=== PATIENT | male | born 1990 | race Caucasian/White ===

== ENCOUNTER 2017-01-05 22:06 | Inpatient (IN) | payer BC, OTHER ==
[~2017-01-05] VITALS: Ht 193 cm; Wt 86.2 kg
--- NOTE | 2017-01-05 22:45 | NUR ---
7870 ADMISSION NOTE: 26 year old, well-nourished, caucasion male admitted ambulatory to room # 307, from [facility], accompanied by T. Gait is steady. Patient responds to nurse's greeting and introduction with very brief eye contact and delayed, flat "hello". Patient is oriented to person, place, day, and his personal situation. Reoriented to date and time. Patient's color is pink and his skin is warm, dry and intact. Lung sounds are clear bilaterally and active bowel sounds are noted X 4 abdominal Quads, per auscultation. Patient moves all his extremities fully WNL. Patient denies any pain or other discomforts, though he states in hesitant manner that " yeah, I feel okay". Patient is 6 feet, 4 inches and he weighs 190 lbs. Patient states that he has no food or drug allergies and he denies any seizure history. Patient states that at home he only takes Seroquel 250 mg p.o. every night, though he states also that he has not taken this medication " in a couple of weeks now". Patient states that he has no PCP and is currently living " between places". Patient is admitted for: 1) Heroin IV, used daily 2 grams, last use was 2 grams on 01/05/17. Patient has been using Heroin at this rate for 6 months. 2)Cocaine IV, used 3 times per week 1 gram, last use was 1 gram, a few months ago. Patient has been using Cocaine at this rate for 3 to 4 years. 3) Methamphetamine IV, used 2 times per week, last use was 1/2 gram on 01/03/17. Patient has been using Methamphetamine at this rate for 3 years. Patient states that his longest period of sobriety was 8 months in 2012. Patient states that the last time he was in treatment was in September 2016 for 21 days in [facility] and before then, he was in a [place] treatment facility for 30 days in 2013. Patient is unable to give exact facility names at this time. Patient states that he has a history of anxiety, depression and repair of right tibia fracture with kenneth insertion which was done in 2009. Patient oriented to his room and nurse call light. Patient is presents very tired, sleepy and he is cooperative with admission process with much prompting and repeating of many questions. Overall mood/affect is flat, very guarded and patient basically speaks only a very few words when he is spoken to. [place] snack and juice taken. Bed is locked and in lowest position, bed rails are up X 2 and call light within patient's easy reach.
[2017-01-06] VITALS: BP 119/57
[2017-01-06] MEDS ORDERED: LOPERAMIDE HCL 2 MG CAPSULE PO PRN ×2
[2017-01-06] MEDS ORDERED: MAGNESIUM HYDROXIDE 30 ML LIQUID UDC PO PRN
[2017-01-06] MEDS ORDERED: ONDANSETRON ODT 4 MG TAB.RAPDIS SL PRN
[2017-01-06] MEDS ORDERED: MAG HYDROX/AL HYDROX/SIMETH 30 ML LIQUID UDC PO PRN
[2017-01-06] MEDS ORDERED: ACETAMINOPHEN 325 MG TABLET PO PRN
[2017-01-06] MEDS ORDERED: BUPRENORPHINE HCL 2 MG TAB.SUBL SL PRN
[2017-01-06] MEDS ORDERED: MIRALAX 17 GM POWD.PACK PO PRN
[2017-01-06] MEDS ORDERED: METHOCARBAMOL 750 MG TABLET PO PRN
[2017-01-06] MEDS ORDERED: IBUPROFEN 400 MG TABLET PO PRN
[2017-01-06] MEDS ORDERED: diphenhydrAMINE 50 MG CAPSULE PO PRN
[2017-01-06] MEDS ORDERED: HYDROXYZINE PAMOATE 25 MG CAPSULE PO PRN
[2017-01-06] MEDS ORDERED: CLONIDINE HCL 0.1 MG TABLET PO PRN
[2017-01-06] MEDS ORDERED: PROMETHAZINE HCL 25 MG/1 ML VIAL IM PRN
[2017-01-06] MEDS ORDERED: DICYCLOMINE HCL 20 MG TABLET PO PRN
[2017-01-06 00:12] LABS: *AMPHETAMINE, URINE NEGATIVE (NEGATIVE); *BARBITURATE, URINE NEGATIVE (NEGATIVE); *CANNABINOID, URINE NEGATIVE (NEGATIVE); *COCCAINE, URINE NEGATIVE (NEGATIVE); *OPIATE, URINE POSITIVE (NEGATIVE); *PHENCYCLIDINE SCREEN,URINE NEGATIVE (NEGATIVE)
[2017-01-06 04:00] VITALS: BP 115/65
--- NOTE | 2017-01-06 06:30 | NUR ---
0630 Patient slept a total of 7 hours and he had 4 voids and no stools. Total intake was 1,425 ml p.o. No Prn medications given this shift. V/SS afebrile, COWS 4. Patient presently resting comfortably with eyes closed and respirations regular, unlabored at 14. Patient is in stable condition at this time.
[2017-01-06 08:00] VITALS: BP 109/61
--- NOTE | 2017-01-06 08:01 | NUR ---
START OF SHIFT NOTE Received report from night nurse, 26 year old male admitted for Heroin/Cocaine/Meth dependence. pt reported PMH of anxiety, depression,right tibia fracture repair, hep-c(+). NKA/regular diet, Full code. Pt currently not on any taper but PRN's available for s/s of withdrawal. Skin intact. pt did not receive any PRN per night nurse. Pt slept for 6 hours, Last COWS-4. Received pt sleeping in his room responsive to verbal and tactile stimuli. No s/s of distress noted. Safety measures in place, call light within reach. Will cont to monitor.
[2017-01-06] MEDS ORDERED: TUBERCULIN,PURIF.PROT.DERIV. 5 TU/0.1 ML TEST ID ONE (09:00)
[2017-01-06] MEDS: MULTIVITAMINS,THERAPEUTIC TABLET PO SCH (09:06)
[2017-01-06 12:00] VITALS: BP 99/55
[2017-01-06 14:28] LABS: BASOPHILS % (AUTO) 0.6 % (0.0-2.0); EOSINOPHILS # (AUTO) 0.2 K/uL (0.0-0.7); EOSINOPHILS % (AUTO) 3.1 % (0.0-7.0); HEMATOCRIT 41.8 % (40.0-50.0); HEMOGLOBIN 14.1 g/dL (14.0-18.0); LYMPHOCYTES # (AUTO) 1.8 K/uL (0.8-4.8); LYMPHOCYTES % (AUTO) 23.5 % (20.5-51.5); MEAN CORPUSCULAR HEMOGLOBIN 29.2 uug (27.0-31.0); MEAN CORPUSCULAR HGB CONC 34 g/dL (32.0-37.0); MEAN CORPUSCULAR VOLUME 86.5 fL (82.0-92.0); MONOCYTES # (AUTO) 0.7 K/uL (0.1-1.30); MONOCYTES % (AUTO) 9.9 % (0.0-11.0); NEUTROPHILS # (AUTO) 4.8 K/uL (1.8-8.9); NEUTROPHILS % (AUTO) 62.9 % (38.5-71.5); PLATELET COUNT (AUTO) 320 K/uL (150-450); RED BLOOD CELL COUNT(AUTO) 4.83 MIL/uL (4.70-6.10); RED CELL DISTRIBUTION WIDTH 13.1 % (11.5-14.5); WHITE BLOOD COUNT (AUTO) 7.5 K/uL (4.0-11.2)
[2017-01-06 14:39] LABS: ETHANOL < 3 MG/DL (0-0)
[2017-01-06 14:43] LABS: ALANINE AMINOTRANSFERASE 21 U/L (16-63); ALBUMIN 3.5 g/dL (3.4-5.0); ALKALINE PHOSPHATASE 71 U/L (50-136); AMYLASE 58 U/L (25-115); ASPARTATE AMINOTRANSFERASE 21 U/L (15-37); BILIRUBIN,TOTAL 0.3 mg/dL (0.2-1.0); CARBON DIOXIDE 32 mmol/L (21-32); CHLORIDE 102 mmol/L (98-107); CREATININE 1.3 mg/dL (0.6-1.3); GFR 67 mL/min (>60); GLUCOSE 68 mg/dL (74-106); LIPASE 103 U/L (73-393); MAGNESIUM 1.8 mg/dL (1.8-2.4); POTASSIUM 4.5 mmol/L (3.5-5.1); SODIUM SERUM 138 mmol/L (136-145); TOTAL PROTEIN, SERUM 7.6 g/dL (6.4-8.2); UREA NITROGEN, BLOOD 13 mg/dL (7-18)
[2017-01-06 14:52] LABS: THYROID STIMULATING HORMONE 0.606 mIU/mL (0.358-3.740)
[2017-01-06 14:54] LABS: HIV-1 p24 ANTIGEN NON REACTIVE (NONREACTIVE); HIV-1/2 ANTIBODY NON REACTIVE (NONREACTIVE)
[2017-01-06 16:00] VITALS: BP 106/65
--- NOTE | 2017-01-06 19:09 | NUR ---
END OF SHIFT NOTE Gave report to night nurse, 26 year old male admitted for Heroin/Cocaine/Meth dependence. Pt reported PMH of anxiety, depression,right tibia fracture repair, hep-c(+). NKA/regular diet, Full code. Pt currently not on any taper but PRN's available for s/s of withdrawal. No PRN's given during shift. Skin intact warm and dry to touch. Vital signs stable. Pt's total intake 1755ml, voided x3, with x1 BM. Last COWS-2. No s/s of distress noted. Safety measures in place, call light within reach.Pt endorsed to night nurse in stable condition.
[2017-01-06 20:00] VITALS: BP 108/70
--- NOTE | 2017-01-06 20:00 | NUR ---
Start of Shift Pt is a 26 year old male admitted on 01/05/2017 for Opiate/Cocaine/Meth dependence, PRNs available. Pt reported using Heroin IV 2g/daily, cocaine 1g 3 times per week and meth 0.5g 2 times per week. NKA, regular diet, fall precautions - no history of seizures and full code. PMH: Anxiety, depression, positive hepatitis C and right tibia fx repair/kenneth insertion 2009. Upon assessment, pt reports fatigue, moderate sweat noted, respirations even and unlabored, denies SOB/chest pain, denies n/v/d, skin warm, moist, intact, bowel sounds active x4, abdomen soft. Safety measures in place, call light within reach, side rails up x2, bed locked and in low position. Will continue to monitor.
[2017-01-07] VITALS: BP 116/64
--- NOTE | 2017-01-07 | NUR ---
Vital Signs BP 116/64, pulse 91, respirations 16, Spo2 96%, temp 97.9 COWS deferred d/t pt sleeping, to asses while pt is awake as ordered. Pt is sleeping, no s/s of distress noted, respirations even and unlabored. Safety measures in place, call light within reach, side rails up x2, bed locked and in low position. Will continue to monitor.
[2017-01-07 04:00] VITALS: BP 113/77
--- NOTE | 2017-01-07 04:00 | NUR ---
Vital Signs BP 113/77, pulse 62, respirations 16, Spo2 99%, temp 98.1 COWS deferred d/t pt sleeping, to asses while pt is awake as ordered. Pt is sleeping, no s/s of distress noted, respirations even and unlabored. Safety measures in place, call light within reach, side rails up x2, bed locked and in low position. Will continue to monitor.
--- NOTE | 2017-01-07 07:00 | NUR ---
End of Shift Pt is a 26 year old male admitted on 01/05/2017 for Opiate/Cocaine/Meth dependence, PRNs available. Pt reported using Heroin IV 2g/daily, cocaine 1g 3 times per week and meth 0.5g 2 times per week. NKA, regular diet, fall precautions - no history of seizures and full code. PMH: Anxiety, depression, positive hepatitis C and right tibia fx repair/kenneth insertion 2009. During shift, pt presented with fatigue, moderate sweat noted - pt remained in room throughout shift, requires encouragement of participate in plan of care. No PRN medications administered during shift, COWS 2. Pt slept for 11 hours, intake of 500 ml PO and voids x1. Safety measures in place, call light within reach, side rails up x2, bed locked and in low position. Endorsed to day shift nurse
--- NOTE | 2017-01-07 07:59 | NUR ---
START OF SHIFT NOTE Received report from night nurse, 26 year old male admitted for Opiate/Cocaine/Meth dependence, NKA, regular diet, Full code. On Fall precautions - no history of seizures and Pt reported PMH of Anxiety, depression, positive hepatitis C and right tibia fx repair/kenneth insertion 2009. Pt reported using Heroin IV 2g/daily, cocaine 1g 3 times per week and meth 0.5g 2 times per week. Currently pt is not on any taper but PRN's available for s/s of withdrawal. Upon assessment, pt is alert awake oriented x4 in stable condition. Breathing normal, respirations even and unlabored, denies SOB/chest pain, denies n/v/d, skin warm, moist, intact, bowel sounds active x4, abdomen soft. Safety measures in place, call light within reach, side rails up x2, bed locked and in low position. Will continue to monitor.
[2017-01-07 08:00] VITALS: BP 126/79
[2017-01-07] MEDS: MULTIVITAMINS,THERAPEUTIC TABLET PO SCH (08:30)
[2017-01-07 12:00] VITALS: BP 109/77
[2017-01-07] MEDS: BUPRENORPHINE HCL 2 MG TAB.SUBL SL SCH ×3 (13:26→20:48)
[2017-01-07] MEDS: GABAPENTIN 300 MG CAPSULE PO SCH ×2 (14:15→20:48)
[2017-01-07 16:00] VITALS: BP 112/68
--- NOTE | 2017-01-07 19:06 | NUR ---
END OF SHIFT NOTE Gave report to night nurse, 26 year old male admitted for Opiate/Cocaine/Meth dependence, NKA, regular diet, Full code. On Fall precautions - no history of seizures and Pt reported PMH of Anxiety, depression, positive hepatitis C and right tibia fx repair/kenneth insertion 2009. Pt reported using Heroin IV 2g/daily, cocaine 1g 3 times per week and meth 0.5g 2 times per week. Pt started on Subutex taper for COWS-13, medication noted effective for controlling symptoms, with low CIWA score-3. No PRN's given during shift. Skin intact warm and dry to touch. Vital signs stable. Pt's total intake 2249 ml, voided x5. No s/s of distress noted. Safety measures in place, call light within reach. Pt endorsed to night nurse in stable condition.
[2017-01-07 20:00] VITALS: BP 106/64
--- NOTE | 2017-01-07 20:00 | NUR ---
Start of Shift Pt is a 26 year old male admitted on 01/05/2017 for Opiate/Cocaine/Meth dependence, start on Subutex taper. Pt reported using Heroin IV 2g/daily, cocaine 1g 3 times per week and meth 0.5g 2 times per week. NKA, regular diet, fall precautions - no history of seizures and full code. PMH: Anxiety, depression, positive hepatitis C and right tibia fx repair/kenneth insertion 2009. Upon assessment, pt reports chills/sweats, joint/muscle aches, respirations even and unlabored, denies SOB/chest pain, denies n/v/d, skin warm, moist, intact, bowel sounds active x4, abdomen soft. Safety measures in place, call light within reach, side rails up x2, bed locked and in low position. Will continue to monitor.
[2017-01-08] VITALS: BP 109/61
--- NOTE | 2017-01-08 | NUR ---
Vital Signs BP 109/61, pulse 64, respirations 16, Spo2 98%, temp 97.9 COWS deferred d/t pt sleeping, to asses while pt is awake as ordered. Pt is sleeping, no s/s of distress noted, respirations even and unlabored. Safety measures in place, call light within reach, side rails up x2, bed locked and in low position. Will continue to monitor.
--- NOTE | 2017-01-08 04:00 | NUR ---
Pt refused to be woken up for 0400 Vital Signs COWS deferred d/t pt sleeping, to asses while pt is awake as ordered. Pt is sleeping, no s/s of distress noted, respirations even and unlabored. Safety measures in place, call light within reach, side rails up x2, bed locked and in low position. Will continue to monitor.
--- NOTE | 2017-01-08 07:00 | NUR ---
End of Shift Pt is a 26 year old male admitted on 01/05/2017 for Opiate/Cocaine/Meth dependence, start on Subutex taper. Pt reported using Heroin IV 2g/daily, cocaine 1g 3 times per week and meth 0.5g 2 times per week. NKA, regular diet, fall precautions - no history of seizures and full code. PMH: Anxiety, depression, positive hepatitis C and right tibia fx repair/kenneth insertion 2009. During shift, pt presented with chills/sweat, joint/muscle aches - scheduled taper medications administered, COWS 3. No PRN medications administered during shift. VS stable, Pt slept for 7 hours, intake of 1900 ml PO and voids x3. VS stable, Safety measures in place, call light within reach, side rails up x2, bed locked and in low position. Endorsed to day shift nurse.
--- NOTE | 2017-01-08 07:30 | NUR ---
Start of shift note; Received report from night nurse. Patient is currently resting with eyes closed, responsive to verbal commands. Respirations even and unlabored. Patient is a 26 y/o male admitted on 01/05/17 for Heroin/Cocaine/Meth dependence. Patient reported medical history of Anxiety, depression, kenneth insertion in 2009. NKA, regular diet and on full code status. Patient was placed on 3 day Subutex taper started on 01/07/17, patient's last COWS is 3. All safety measures secured. Met all needs.
[2017-01-08 08:00] VITALS: BP 105/61
[2017-01-08] MEDS: MULTIVITAMINS,THERAPEUTIC TABLET PO SCH (08:48)
[2017-01-08] MEDS: GABAPENTIN 300 MG CAPSULE PO SCH ×3 (08:48→21:19)
[2017-01-08] MEDS ORDERED: BUPRENORPHINE HCL 2 MG TAB.SUBL SL SCH (09:00)
[2017-01-08 12:00] VITALS: BP 104/61
[2017-01-08] MEDS ORDERED: QUET200T PO (12:19)
[2017-01-08] MEDS: BUPRENORPHINE HCL 2 MG TAB.SUBL SL SCH ×2 (14:00→21:19)
[2017-01-08 14:06] LABS: HCV AB >11.0 s/co ratio (0.0-0.9); HEPATITIS B CORE AB, IgM Negative (Negative); HEPATITIS B SURFACE AG Negative (Negative)
[2017-01-08 16:00] VITALS: BP 106/66
--- NOTE | 2017-01-08 18:09 | NUR ---
End of shift note; Patient is AOX4. Patient is a 26 y/o male admitted on 01/05/17 for Heroin/Cocaine/Meth dependence. Patient reported medical history of Anxiety, depression, kenneth insertion in 2009. NKA, regular diet and on full code status. Patient was placed on 3 day Subutex taper started on 01/07/17 no adverse reactions noted, patient's last COWS is 4. Patient remained compliant with treatment plan. Safety measures secured. Met all needs.
[2017-01-08 20:00] VITALS: BP 112/72
--- NOTE | 2017-01-08 20:00 | NUR ---
Start of Shift Pt is a 26 year old male admitted on 01/05/2017 for Opiate/Cocaine/Meth dependence, start on Subutex taper. Pt reported using Heroin IV 2g/daily, cocaine 1g 3 times per week and meth 0.5g 2 times per week. NKA, regular diet, fall precautions - no history of seizures and full code. PMH: Anxiety, depression, positive hepatitis C and right tibia fx repair/kenneth insertion 2009. Upon assessment, pt reports joint/muscle aches, respirations even and unlabored, denies SOB/chest pain, denies n/v/d, skin warm, moist, intact, bowel sounds active x4, abdomen soft. Safety measures in place, call light within reach, side rails up x2, bed locked and in low position. Will continue to monitor.
--- NOTE | 2017-01-09 | NUR ---
Pt refused to be woken up for 0000 Vital Signs COWS deferred d/t pt sleeping, to asses while pt is awake as ordered. Pt is sleeping, no s/s of distress noted, respirations even and unlabored. Safety measures in place, call light within reach, side rails up x2, bed locked and in low position. Will continue to monitor.
--- NOTE | 2017-01-09 02:18 | NUR ---
PRN Administration Pt requested aid to help him sleep, stated "I can't sleep without anything" Benadryl 50mg PRN administered. Safety measures in place, call light within reach, side rails up x2, bed locked and in low position. Will continue to monitor.
--- NOTE | 2017-01-09 03:18 | NUR ---
PRN Reassessment Upon reassessment, pt is in bed, eyes closed, no s/s of distress noted, respirations even and unlabored. Safety measures in place, call light within reach, side rails up x2, bed locked and in low position. Will continue to monitor.
[2017-01-09 04:00] VITALS: BP 110/68
--- NOTE | 2017-01-09 04:00 | NUR ---
Vital Signs BP 110/68, pulse 68, respirations 17, Spo2 98%, temp 97.9 COWS deferred d/t pt sleeping, to asses while pt is awake as ordered. Pt is sleeping, no s/s of distress noted, respirations even and unlabored. Safety measures in place, call light within reach, side rails up x2, bed locked and in low position. Will continue to monitor.
--- NOTE | 2017-01-09 04:18 | NUR ---
PRN Administration Upon awakening, pt states, "I feel asleep a little, but now I feel anxious". Vistaril 50mg PRN administered. Safety measures in place, call light within reach, side rails up x2, bed locked and in low position. Will continue to monitor.
--- NOTE | 2017-01-09 05:18 | NUR ---
PRN Reassessment Upon reassessment, pt is sleeping, no s/s of distress noted, respirations even and unlabored. Safety measures in place, call light within reach, side rails up x2, bed locked and in low position. Will continue to monitor.
--- NOTE | 2017-01-09 07:00 | NUR ---
End of Shift Pt is a 26 year old male admitted on 01/05/2017 for Opiate/Cocaine/Meth dependence, start on Subutex taper. Pt reported using Heroin IV 2g/daily, cocaine 1g 3 times per week and meth 0.5g 2 times per week. NKA, regular diet, fall precautions - no history of seizures and full code. PMH: Anxiety, depression, positive hepatitis C and right tibia fx repair/kenneth insertion 2009. During shift, pt presented with join/muscle aches scheduled taper medications administered, effective in management of s/s of withdrawal as reported by pt, COWS 3. PRN Benadryl and PRN Vistaril administered. VS stable. Pt slept for 4 hours, intake of 1779 ml PO and voids x3. Safety measures in place, call light within reach, side rails up x2, bed locked and in low position. Endorsed to day shift.
--- NOTE | 2017-01-09 07:41 | NUR ---
Start of shift note; Received report from night nurse. Patient is currently resting with eyes closed, responsive to verbal commands. Respirations even and unlabored. Patient is a 26 y/o male admitted on 01/05/17 for Heroin/Cocaine/Meth dependence. Patient reported medical history of Anxiety, depression, kenneth insertion in 2009. NKA, regular diet and on full code status. Patient was placed on 3 day Subutex taper started on 01/07/17, patient's last COWS is 2. All safety measures secured. Met all needs.
[2017-01-09 08:00] VITALS: BP 107/71
[2017-01-09] MEDS: MULTIVITAMINS,THERAPEUTIC TABLET PO SCH (09:17)
[2017-01-09] MEDS: BUPRENORPHINE HCL 2 MG TAB.SUBL SL SCH ×2 (09:17→14:14)
[2017-01-09] MEDS: GABAPENTIN 300 MG CAPSULE PO SCH ×3 (09:17→21:00)
[2017-01-09] MEDS ORDERED: ONDANSETRON 4 MG/2 ML VIAL IV PRN (11:00)
[2017-01-09 12:00] VITALS: BP 99/62
[2017-01-09 17:00] VITALS: BP 130/84
--- NOTE | 2017-01-09 18:15 | NUR ---
End of shift note; Patient is AOX4. Patient is a 26 y/o male admitted on 01/05/17 for Heroin/Cocaine/Meth dependence. Patient reported medical history of Anxiety, depression, kenneth insertion in 2009. NKA, regular diet and on full code status. Patient was placed on 3 day Subutex taper started on 01/07/17 no adverse reactions noted, patient's last COWS is 3. Patient remained compliant with treatment plan. Medications were effective in reducing withdrawal symptoms. Safety measures secured. Met all needs.
[2017-01-09 20:00] VITALS: BP 94/57
--- NOTE | 2017-01-09 20:00 | NUR ---
START OF SHIFT NOTE PATIENT IS A 26 YEAR OLD MALE , ADMITTED FOR HEROIN/COCAINE /METH WITHDRAWAL. PATIENT WAS PLACED ON 3 DAY SUBUTEX TAPER. PATIENT LAST DOSE OF SUBUTEX WAS GIVEN THIS AM, COMPLETED . NO ADVERSE EFFECT. PATIENT IS TO BE DISCHARGE TOMORROW. SKIN INTACT. PATIENT DID NOT REQUIRE ANY PRN MEDICATION DURING THE DAY. LAST COWS 3. PATIENT ALERT AND ORIENTED X 4. RESPIRATION EVEN AND UNLABORED. PATIENT DENIES ANY PAIN. NO N/V. ON FALL PRECAUTION . NO SEIZURE HISTORY. SAFETY MEASURES IN PLACE. CALL LIGHT IN REACH. WILL CONTINUE TO MONITOR.
--- NOTE | 2017-01-09 21:00 | NUR ---
REFUSED NEURONTIN PATIENT REFUSED TO TAKE NEURONTIN. EDUCATED ON RISKS/BENEFITS. WILL CONTINUE TO MONITOR
[2017-01-10] VITALS: BP 105/62
[2017-01-10] MEDS ORDERED: Gabapentin PO (00:17)
[2017-01-10] MEDS ORDERED: CLON0.1T14 PO (00:17)
[2017-01-10] MEDS ORDERED: DICY20TA28 PO (00:17)
[2017-01-10] MEDS ORDERED: METH-33 PO (00:17)
[2017-01-10] MEDS ORDERED: HYDR-3895 PO (00:17)
[2017-01-10] MEDS ORDERED: MAG HYDROX/AL HYDROX/SIMETH 30 ML LIQUID UDC ONE (03:06)
--- NOTE | 2017-01-10 04:00 | NUR ---
COWS/VS PATIENT REFUSED VS. COWS UNABLE TO COMPLETE. RESPIRATION EVEN AND UNLABORED. RR 15. SAFETY MEASURES IN PLACE. CALL LIGHT IN REACH. WILL CONTINUE TO MONITOR.
--- NOTE | 2017-01-10 07:32 | NUR ---
END OF SHIFT NOTE PATIENT IS A 26 YEAR OLD MALE , ADMITTED FOR HEROIN/COCAINE /METH WITHDRAWAL. PATIENT WAS PLACED ON 3 DAY SUBUTEX TAPER. PATIENT LAST DOSE OF SUBUTEX WAS GIVEN THIS AM, COMPLETED . NO ADVERSE EFFECT. PATIENT IS TO BE DISCHARGE TOMORROW. SKIN INTACT. PATIENT DID NOT REQUIRE ANY PRN MEDICATION DURING SHIFT. PATIENT REFUSED NEURONTIN AT 2100. EDUCATED TO PATIENT RISKS/BENEFITS . ON FALL PRECAUTION . PATIENT PARTICIPATE IN ACTIVITIES. SAFETY MEASURES IN PLACE. CALL LIGHT IN REACH. WILL CONTINUE TO MONITOR. SLEPT 4 HOUS. FLUID INTKE 651 ML. VOIDED X 2. NO BM. LAST COWS 1.
[2017-01-10 08:00] VITALS: BP 105/62
--- NOTE | 2017-01-10 08:00 | NUR ---
START OF SHIFT Pt 26 y/o male admitted for heroin cocaine, and methamphetamine withdrawal. Pt received in room with eyes closed resting, but easily arousable to name. Pt alert and oriented to name, place, and time. [place]. Skin warm and dry to touch. Respirations even and unlabored. Pt is scheduled to be discharged today. It was reported that pt slept for 4 hours last night. Bed on lowest position with side rails x2 up for safety. Call light within reach. No distress noted at this time.
[2017-01-10] MEDS: GABAPENTIN 300 MG CAPSULE PO SCH (08:37)
[2017-01-10] MEDS: MULTIVITAMINS,THERAPEUTIC TABLET PO SCH (08:37)
[2017-01-10] MEDS ORDERED: BUPRENORPHINE HCL 2 MG TAB.SUBL SL SCH (09:00)
[2017-01-10 09:11] LABS: *AMPHETAMINE, URINE NEGATIVE (NEGATIVE); *BARBITURATE, URINE NEGATIVE (NEGATIVE); *CANNABINOID, URINE NEGATIVE (NEGATIVE); *COCCAINE, URINE NEGATIVE (NEGATIVE); *OPIATE, URINE NEGATIVE (NEGATIVE); *PHENCYCLIDINE SCREEN,URINE NEGATIVE (NEGATIVE)
--- NOTE | 2017-01-10 10:45 | NUR ---
DISCHARGE NOTE Patient was discharged to [facility] at 1045am via private transport. Patient was alert and oriented X4, denies any complaints, vital WNL, no signs and symptoms of witrhdrawals. Discharge package was given to patient upon discharge. Patient did not come with home meds and verified by patient. New prescription order placed in the package. Patient did not have any belongings in the cabinet. No distress noted.
[2017-01-11] MEDS ORDERED: BUPRENORPHINE HCL 2 MG TAB.SUBL SL SCH (09:00)
[2017-01-15 23:21] LABS: *CODEINE Positive (.); *HYDROMORPHONE Negative (Cutoff=300); *OPIATES Positive ng/mL (Cutoff=300)
== END 2017-01-10 10:45 | disposition other institution (70) | DRG 895 ==
LOC: SRC 22:06
PROVIDERS: ADMIT Internal Medicine; ATTEND Internal Medicine
PROC: HZ2ZZZZ Detoxification Services for Substance Abuse Treatment (ICD-10-PCS; principal; 2017-01-05)
PROC: HZ31ZZZ Individual Counseling for Substance Abuse Treatment, Behavioral (ICD-10-PCS; 2017-01-07)
DX: F14.90 Cocaine use, unspecified, uncomplicated (principal); F11.23 Opioid dependence with withdrawal; B19.20 Unspecified viral hepatitis C without hepatic coma; Z59.0 Homelessness; F41.9 Anxiety disorder, unspecified; F17.210 Nicotine dependence, cigarettes, uncomplicated; F15.90 Other stimulant use, unspecified, uncomplicated
CPT/HCPCS: 36415; 80307; 80361; 83690; 83735; 84443; 85025; 86580; 86592; 86705; 86803; 87340; 87806; G6040-TC; Q0163

== ENCOUNTER 2017-07-11 14:26 | Inpatient (IN) | payer OTHER ==
[~2017-07-11] VITALS: Ht 193 cm; Wt 81.6 kg
[~2017-07-11 14:26] MED LIST: CLON0.1T14 PO; DICY20TA28 PO; Gabapentin PO; HYDR-3895 PO; METH-33 PO; QUET200T PO
--- NOTE | 2017-07-11 15:20 | NUR ---
PRE-ASSESSMENT: Pre-Assessment done at intake office, client is A/O x4, he presents with flat affect, anxious mood. Pin point pupils noted. T 97.6, RR 18, BP 104/69, HR 80, spO2 @ 98% on RA, pain 0/10. He is fully ambulatory. He denies any allergies; he denies any withdrawal-induced seizure. PMH: Hep C (2015), Anxiety, Depression Chronic tobacco use (1 pack daily). Past surgical hx: Right tibia ORIF in 2009 Medications taken at home Seroquel 100mg HS PO Klonopin 2mg PO BID Subutex 8mg SL BID Substance history Heroin 2gm IV daily for the past 2 months, last used an hour prior to admission 0.5gm IV Cocaine 1 mg IV daily for the past 2 months, last used 06/27/17.
[2017-07-11 16:32] LABS: *AMPHETAMINE, URINE NEGATIVE (NEGATIVE); *BARBITURATE, URINE NEGATIVE (NEGATIVE); *CANNABINOID, URINE NEGATIVE (NEGATIVE); *COCCAINE, URINE NEGATIVE (NEGATIVE); *OPIATE, URINE POSITIVE (NEGATIVE); *PHENCYCLIDINE SCREEN,URINE NEGATIVE (NEGATIVE)
[2017-07-11 16:32] LABS: BASOPHILS # (AUTO) 0.1 K/uL (0.0-8.0); BASOPHILS % (AUTO) 1.2 % (0.0-2.0); EOSINOPHILS # (AUTO) 0.3 K/uL (0.0-0.7); EOSINOPHILS % (AUTO) 3.9 % (0.0-7.0); HEMATOCRIT 38.3 % (36.7-47.1); HEMOGLOBIN 13.4 g/dL (12.5-16.3); LYMPHOCYTES # (AUTO) 1.5 K/uL (20.0-40.0); LYMPHOCYTES % (AUTO) 22.3 % (20.5-51.5); MEAN CORPUSCULAR HEMOGLOBIN 28.9 uug (23.8-33.4); MEAN CORPUSCULAR HGB CONC 35 g/dL (32.5-36.3); MEAN CORPUSCULAR VOLUME 83.1 fL (73.0-96.2); MONOCYTES # (AUTO) 0.6 K/uL (2.0-10.0); MONOCYTES % (AUTO) 8.1 % (0.0-11.0); NEUTROPHILS # (AUTO) 4.4 K/uL (1.8-8.9); NEUTROPHILS % (AUTO) 64.5 % (38.5-71.5); PLATELET COUNT (AUTO) 272 K/uL (152-348); RED BLOOD CELL COUNT(AUTO) 4.61 MIL/uL (4.06-5.63); WHITE BLOOD COUNT (AUTO) 6.8 K/uL (3.6-10.2)
[2017-07-11 16:45] LABS: ALANINE AMINOTRANSFERASE 547 U/L (16-63); ALKALINE PHOSPHATASE 106 U/L (50-136); ASPARTATE AMINOTRANSFERASE 150 U/L (15-37); BILIRUBIN,TOTAL 0.3 mg/dL (0.2-1.0); CARBON DIOXIDE 33 mmol/L (21-32); CHLORIDE 102 mmol/L (98-107); GLUCOSE 132 mg/dL (74-106); MAGNESIUM 1.8 mg/dL (1.8-2.4); POTASSIUM 3.9 mmol/L (3.5-5.1); TOTAL PROTEIN, SERUM 8.1 g/dL (6.4-8.2); UREA NITROGEN, BLOOD 12 mg/dL (7-18)
[2017-07-11 16:46] LABS: ETHANOL < 3 MG/DL (0-0)
--- NOTE | 2017-07-11 18:00 | NUR ---
ADMISSION NOTE: Patient is 26yo male patient presented for admission for supervised withdrawal from heroin and clonazepam. Alert and oriented X4, full code with NKA. Vital signs: WNL. Patient denies any SOB and chest pain. Denies sweating, n/v/d, stuffy nose, hallucinations at this time. CIWA: 4 and COWS: 3 on admission. Patient reports symptoms such as mild anxiety and tremors. Patient reports he last used today so he has no symptoms at this time. Patient has steady gait. Patient has history of R tibia ORIF. Complains of genital sores and bloody stool (fresh blood). Noted diffused sores on the scrotum, no hemorroids noted on the outer rectum, MD notified. On seizure and fall precaution (no history of seizure, padding on side rail provided. Denies suicidal and homicidal ideation. Patient did not bring any home meds but states he takes seroquel 100mghs. Patient has no PCP at this time. Substance use history per patient report: 1) Heroin - pt. reports last use was 07/11/17 (used 0.5gm), used 2gm/day for 2 months, started using at age 17. 2) Klonopin - pt. reports last use was 07/10/17 (used 2mg), used 4mg/day for 2 months, started suing at age 18. 3) Cocaine - pt. reports last use was 06/27/17 (used 1gm), used 1gm/day for 2 months, started using at age 18. 2) Subutex - pt. reports last use was 07/10/17 (used 8mg), used 16mg/day for 2 months (intermittent), started suing at age 18. Rehab history: [facility] - Oct 2016 (2 months)
[2017-07-11 20:00] VITALS: BP 105/81
--- NOTE | 2017-07-11 20:00 | NUR ---
1999 Patient received awake, alert and standing at his bedside, in his room #[id number], watching television. Patient responds to nurse's greeting and introduction with eye contact and flat, " Okay". Patient's color is pink and his skin is warm, dry and intact. Patient's overall appearance is disheveled. Patient is oriented to person, place, day, date, time and his personal situation. Patient states that he was admitted a short time ago this afternoon and he states further that he has been at [facility] before today. Patient states that he is eating lots of sweet snacks and taking various fluids since his admission today and he presently has no specific complaints or requests at this time. Vital signs are: 98.2-89-16 105/81, O2 Sat 99%, COWS 5 , CIWA 5 . Patient denies any pain presently. Patient was admitted today, 07/11/17, for: Heroin, Klonopin, Cocaine and Subutex withdrawal and he is prescribed PRN medications only for withdrawal symptoms at this time. Patient is cooperative and verbally appropriate when interacting with nurse, though he doesn't smile and verbalizations and eye contact are brief. Patient's overall mood/affect is blunt, brisk, bordering on unfriendly and impatient. Bed locked and in lowest position, padded bed rails are up X 2 and call light within patient's easy reach.
[2017-07-12] VITALS: BP 118/76
--- NOTE | 2017-07-12 | NUR ---
V/S are: 98.7-86-16 118/76, O2 Sat 97%. Patient refused to do COWS, CIWA assessments at this time.
[2017-07-12 04:00] VITALS: BP 111/71
--- NOTE | 2017-07-12 04:57 | NUR ---
V/S are: 98.3-80-14 111/71, O2 Sat 97%. Patient too sleepy to do COWS, CIWA assessments at this time.
--- NOTE | 2017-07-12 06:30 | NUR ---
0630 Patient slept a total of 6 hours and he had 1 void and no stools. Total intake was 710 ml p.o. Prn medications given noted separately per floor protocol. V/SS afebrile, last COWS 5, last CIWA 5 at 1999. Patient is presently resting comfortably in stable condition with eyes closed and respirations even, unlabored at 12.
--- NOTE | 2017-07-12 07:30 | NUR ---
START OF SHIFT Pt 26 y/o male admitted for substance dependence. Pt received in room with eyes closed resting, but easily arousable to name. Pt alert and oriented to name, place, and time. [place]. Skin warm and slightly moist to touch. Respirations even and unlabored. It was reported that pt slept for 6 hours last night. Bed on lowest position with side rails x2 up for safety. Call light within reach. No distress noted at this time.
[2017-07-12 08:00] VITALS: BP 90/50
[2017-07-12 08:06] LABS: HEPATITIS B SURFACE AG Negative (Negative)
[2017-07-12 12:00] VITALS: BP 124/88
--- NOTE | 2017-07-12 12:00 | NUR ---
COWS AND CIWA DEFFERRED cows and ciwa defferred. Pt in room on bed with eyes closed resting, but arousable to name. Pt refused to answer any assessment questions. Pt stating, " I'm okay. I don't need anything"
[2017-07-12 16:00] VITALS: BP 99/55
--- NOTE | 2017-07-12 19:18 | NUR ---
END OF SHIFT Pt 26 y/o male admitted for substance dependence. Pt alert and oriented to name, place, and time. P[place]. Skin warm and slightly moist to touch. Respirations even and unlabored. Pt observed isolative to room the whole day. Pt did not attend group activity. Pt selective with medications. Pt did not want to be bothered for most of the afternoon and early evening. Bed on lowest position with side rails x2 up for safety. Call light within reach. No distress noted at this time.
[2017-07-12 20:00] VITALS: BP 109/62
--- NOTE | 2017-07-12 20:00 | NUR ---
1999 Patient received awake, alert and ambulating back to his room #[id number] from [facility] in recreation room. Gait is brisk, steady. Patient does not verbally acknowledge nurse's greeting, though he does give brief eye contact. Patient's color is pink and his skin is warm, very slightly moist and intact. Patient's overall appearance is disheveled. Patient is oriented to person, place, day, date, time and his personal situation. Patient denies feeling any pain or other discomforts and he offers no requests for anything at this time. Patient states that he has been eating his Regular diet meal trays and taking various fluids ad paulo with no gastric issues so far. Vital signs are: 97.4 -80-14 109/62, O2 Sat 99%, COWS 1 , CIWA 1 . Patient was admitted on 07/11/17 for: Heroin, Klonopin, Cocaine and Subutex and he is currently on Prn medications only for any withdrawal symptoms. Patient just wants to rest, he states and he is cooperative with COWS, CIWA assessment with much prompting only. Bed is locked and in lowest position, bed rails are up X 2 and call light within patient's easy reach.
--- NOTE | 2017-07-13 06:30 | NUR ---
0630 Patient slept a total of 8.5 hours and he had 3 voids and 1 stools. Total intake was 1,547 ml p.o. No prn medications given this shift. V/SS afebrile, last COWS 1, last CIWA 1 at 1999. Patient is presently sleeping comfortable in stable condition with eyes closed and respirations quiet, even, unlabored at 12.
--- NOTE | 2017-07-13 07:30 | NUR ---
START OF SHIFT Pt is a 26 yr old male, A&x3. Pt was admitted on 07/11/17 for Opiate/Benzo Dependence and is on 5 day Ativan and 5 day Subutex taper as ordered. Received report from neon sign erector nurse. Pt did not received any PRN's during the night. Pt slept for 8hrs. Last COWS score was 1 CIWA score was 1 at 2200. Pt is currently in bed resting with respirations even and unlabored. No acute distress noted. Skin is intact, warm and dry to touch. Safety precautions observed. Bed kept in low positions and locked with side rails up x2. Call light is within reach. Will continue to monitor.
[2017-07-13 08:00] VITALS: BP 118/80
[2017-07-13 11:43] LABS: BILIRUBIN,DIRECT 0.1 mg/dL (0.0-0.2); BILIRUBIN,TOTAL 0.3 mg/dL (0.2-1.0); CREATININE 1.3 mg/dL (0.6-1.3); MAGNESIUM 1.9 mg/dL (1.8-2.4); POTASSIUM 4.4 mmol/L (3.5-5.1); TOTAL PROTEIN, SERUM 8.5 g/dL (6.4-8.2)
[2017-07-13 12:00] VITALS: BP 108/64
--- NOTE | 2017-07-13 16:00 | NUR ---
NSG NOTES Pt refused to have VS check at 1600. Pt was educated benefits of VS but pt continued to refuse. RR 16. Will continue to monitor. Addendum: 07/13/17 at 1731 by CONNOR BRADLEY LVN Amended: Links added.
--- NOTE | 2017-07-13 18:46 | NUR ---
END OF SHIFT Pt is a 26 yr old male, A&x4. Pt was admitted on 07/11/17 for Opiate/Benzo Dependence and is on 5 day Ativan and 5 day Subutex taper as ordered. Pt has been cooperative with medication regimen and plan of care. Pt refused to attended group sessions. Last COWS score was 1 CIWA score was 1 at 1600. Pt has been observed with increase fatigue and has been in bed throughout the day. No acute distress noted. Skin is intact, warm and dry to touch. No tremors seen or felt. Pt denies any n/v. Pt was c/o mild body aches but is able to tolerate pain level. Encouraged increase fluid intake. Safety precautions observed. Bed kept in low positions and locked with side rails up x2. Call light is within reach.
--- NOTE | 2017-07-13 19:10 | NUR ---
Start of shift note Received report from day shift nurse. Pt is a 26 yo male, A+Ox4, presenting to [facility] for Opiate/Benzo/Cocaine dependence. Pt has NKA, is on Full code status, and on Regular diet. Pt has HX of Hep C. Pt is on 5 day Subutex and 5 day Ativan taper, tolerated well. No s/s of distress noted at this time. Respirations even and unlabored. Will continue to monitor.
[2017-07-13 20:16] VITALS: BP 110/74
[2017-07-14 00:12] VITALS: BP 114/73
[2017-07-14 04:50] VITALS: BP 109/69
--- NOTE | 2017-07-14 06:59 | NUR ---
End of shift note Pt is a 26 yo male, A+Ox4, presenting to [facility] for Opiate/Benzo/Cocaine dependence. Pt has NKA, is on Full code status, and on Regular diet. Pt has HX of Hep C. Pt is on 5 day Subutex and 5 day Ativan taper, tolerated well. Pt slept for a total of 7 HRS. Last COWS: 1 and Last CIWA: 1 @0400. No s/s of distress noted at this time. Respirations even and unlabored. Will endorse to day shift nurse.
--- NOTE | 2017-07-14 07:45 | NUR ---
START OF SHIFT Rcvd endorsement from ongoing nurse, client is in room, he is a/o to name, place, situation, he presents with anxious mood, flat affect, and flushed face, he is fully ambulatory. He reports anxiety, difficulty sleeping, restless legs, decreased appetite, fatigue, and chills. Client is on Acyclovir 400mg PO TID for suppressive therapy genital herpes, Augmentin 500-125 mg Q12H 2 out of 5 days for L upper and R lower molar infection, tolerating well. Encourage client to attend group therapy for skills to maintain sober, he verbalized understanding. Encourage client to increase PO fluid intake as tolerated to facilitate detox. Client is a 26 yo male, admitted to [facility] for withdrawal from clonazepam and heroin. He is on 5 day Ativan / Subutex taper (day 3), tolerating well with no ASE. Last CIWA / 1 @ 0400. Client had an uneventful night, he slept 7 hrs. Client reported NKA, full code, regular diet. Client denies a hx of withdrawal-induced seizure. Side rails x 2 up/padded, bed in lowest/lock position. Call light within reach.
[2017-07-14 08:00] VITALS: BP 110/74
[2017-07-14 12:00] VITALS: BP 104/70
--- NOTE | 2017-07-14 15:28 | NUR ---
Therapist prompted client about group times. Client stated he would attend all groups today.
[2017-07-14 16:00] VITALS: BP 123/78
--- NOTE | 2017-07-14 17:30 | NUR ---
Administrative discharge: Client with behavioral issues, he was not compliant with plan of care. He stated the he was not ready for sobriety. Multiple staff members spoke with client without any success, client failed to redirect himself. VS are WNL, pt denies any suicidal/homicidal ideations, skin intact , Dr. Oliver notified. Pt was given a list of community resources in case he is in need of help. all belongings returned to pt. pt left the unit at 1730.
== END 2017-07-14 17:30 | disposition left against medical advice (07) | DRG 894 ==
LOC: SRC 14:54
PROVIDERS: ADMIT Internal Medicine; ATTEND Internal Medicine
DX: F13.232 Sedative, hypnotic or anxiolytic dependence with withdrawal with perceptual disturbance (principal); E87.3 Alkalosis; F14.20 Cocaine dependence, uncomplicated; F17.210 Nicotine dependence, cigarettes, uncomplicated; Z83.49 Family history of other endocrine, nutritional and metabolic diseases; Z81.1 Family history of alcohol abuse and dependence; K03.81 Cracked tooth; F41.9 Anxiety disorder, unspecified; Z59.1 Inadequate housing; Z91.89 Other specified personal risk factors, not elsewhere classified; A60.00 Herpesviral infection of urogenital system, unspecified; B19.20 Unspecified viral hepatitis C without hepatic coma; E86.0 Dehydration; F32.9 Major depressive disorder, single episode, unspecified; K04.7 Periapical abscess without sinus; Z91.19 Patient's noncompliance with other medical treatment and regimen
CPT/HCPCS: 36415; 80307; 80361; 83735; 85025; 86592; 86705; 86803; 87340; 87806; G0480; Q0163